=== PATIENT | female | born 1960 | race Caucasian/White ===

== ENCOUNTER 2016-08-18 00:58 | Emergency (ER) | payer BC, OTHER ==
[~2016-08-18] VITALS: Ht 170.2 cm; Wt 140.6 kg
[2016-08-18 00:58] VITALS: BP 110/58; PULSE 80; RESP 20; TEMP 98; O2SAT 100
--- NOTE | 2016-08-18 01:19 | NUR ---
Patient to ER bed 4 to gown for evaluation. Side rails up. Report given to NURA TYLER.
--- NOTE | 2016-08-18 01:35 | NUR ---
Pt BIB EMS with hypoglycemia, blood sugar 80 per cutter v groove. Pt appeared lethargic, pale, diaphoretic. A&Ox4, denies SOB or chestpain, denies N/V/D. Skin intact. Will continue to monitor
--- NOTE | 2016-08-18 01:40 | NUR ---
at bedside examining pt
--- NOTE | 2016-08-18 02:00 | NUR ---
Pt given juice and sandwich, family member at bedside
--- NOTE | 2016-08-18 03:10 | NUR ---
POCT sugar 171, notified
[2016-08-18 03:16] LABS: BASOPHILS % (AUTO) 0.4 % (0.0-2.0); EOSINOPHILS # (AUTO) 0.1 K/uL (0.0-0.4); EOSINOPHILS % (AUTO) 1.1 % (0.0-4.0); HEMATOCRIT 34.2 % (36-48); HEMOGLOBIN 11.1 g/dL (12.0-16.0); LYMPHOCYTES # (AUTO) 1.3 K/uL (1.0-5.5); LYMPHOCYTES % (AUTO) 13.4 % (20.5-51.5); MEAN CORPUSCULAR HEMOGLOBIN 30 pg (27-31); MEAN CORPUSCULAR HGB CONC 33 % (32-36); MEAN CORPUSCULAR VOLUME 93 fL (79.0-98.0); MONOCYTES # (AUTO) 0.7 K/uL (0.0-1.0); MONOCYTES % (AUTO) 7.3 % (1.7-9.3); NEUTROPHILS # (AUTO) 7.8 K/uL (1.8-7.7); NEUTROPHILS % (AUTO) 77.8 % (40.0-70.0); PLATELET COUNT (AUTO) 236 K/uL (130-430); RED BLOOD CELL COUNT(AUTO) 3.69 MIL/uL (4.2-6.2); RED CELL DISTRIBUTION WIDTH 13.6 % (9.0-15.0); WHITE BLOOD COUNT (AUTO) 9.9 K/uL (4.8-10.8)
[2016-08-18 03:23] LABS: ANION GAP 11 (5-15); CHLORIDE 100 mmol/L (98-107); CREATININE 1.13 mg/dL (0.55-1.30); GLUCOSE 166 mg/dL (70-99); POTASSIUM 4.3 mmol/L (3.5-5.1); SODIUM SERUM 136 mmol/L (136-145); UREA NITROGEN, BLOOD 14 mg/dL (8-21)
[2016-08-18 03:25] LABS: GFR AFRICAN AMERICAN 64 mL/min (>90)
[2016-08-18 03:31] LABS: ALANINE AMINOTRANSFERASE 58 U/L (12-78); ALBUMIN 3.7 g/dL (3.4-4.8); ASPARTATE AMINOTRANSFERASE 82 U/L (10-37); TOTAL BILIRUBIN 0.2 mg/dL (0.0-1.0); TOTAL PROTEIN, SERUM 7.2 g/dL (6.4-8.3)
[2016-08-18 03:50] VITALS: BP 107/56; PULSE 78; RESP 18; TEMP 98; O2SAT 99
--- NOTE | 2016-08-18 03:50 | NUR ---
Patient given written and verbal discharge instructions and verbalizes understanding. ER MD Valle discussed with patient the results and treatment provided. Patient in stable condition. ID arm band removed. No Rx given. Patient educated on pain management and to follow up with PMD. Pain Scale 0/10 Opportunity for questions provided and answered.
== END 2016-08-18 03:50 | disposition home or self-care (01) ==
LOC: SED 00:58
DX: E11.649 Type 2 diabetes mellitus with hypoglycemia without coma (principal); R42 Dizziness and giddiness; Z88.5 Allergy status to narcotic agent; Z88.1 Allergy status to other antibiotic agents
CPT/HCPCS: 36415; 80053; 84484; 85025; 93005; 99285